=== PATIENT | female | born 1975 | race African-American/Black ===

== ENCOUNTER 2017-06-06 14:13 | Inpatient (IN) | payer MEDICARE ==
[~2017-06-06] VITALS: Ht 162.6 cm; Wt 78.2 kg
[2017-06-06] MEDS ORDERED: VIT B1 PO (14:30)
[2017-06-06] MEDS ORDERED: METO5TAB87 PO (14:30)
[2017-06-06] MEDS ORDERED: BIOT1TAB6 PO (14:30)
[2017-06-06] MEDS ORDERED: PHOSLOC PO (14:30)
[2017-06-06] MEDS ORDERED: NITR1PAT63 TD (14:30)
[2017-06-06] MEDS ORDERED: B12 PO (14:30)
[2017-06-06] MEDS ORDERED: ASPI81TA39 PO (14:30)
[2017-06-06 14:32] LABS: GLUCOSE,POINT OF CARE 193 MG/DL (70-110)
[2017-06-06 15:29] LABS: BASOPHILS % (AUTO) 0.8 % (0.0-2.0); HEMATOCRIT 31.3 % (36-46); HEMOGLOBIN 10.4 g/dL (12.0-16.0); LYMPHOCYTES # (AUTO) 2.7 K/uL (1.0-4.8); LYMPHOCYTES % (AUTO) 33.4 % (22.0-44.0); MEAN CORPUSCULAR HEMOGLOBIN 33.2 pg (26.0-34.0); MEAN CORPUSCULAR HGB CONC 33.3 G/dL (31.0-37.0); MEAN CORPUSCULAR VOLUME 100 fL (80-100); MONOCYTES # (AUTO) 0.5 K/uL (0.1-1.0); MONOCYTES % (AUTO) 5.6 % (2.0-9.0); NEUTROPHILS # (AUTO) 4.7 K/uL (1.8-7.7); NEUTROPHILS % (AUTO) 58.2 % (40.0-70.0); PLATELET COUNT (AUTO) 290 K/uL (150-450); RED BLOOD CELL COUNT(AUTO) 3.15 MIL/uL (4.00-5.20); RED CELL DISTRIBUTION WIDTH 17.2 % (11.5-14.5); WHITE BLOOD COUNT (AUTO) 8.1 K/uL (4.5-11.0)
[2017-06-06 16:06] LABS: CALCIUM, TOTAL 8.4 mg/dL (8.8-10.5); CREATININE 18.68 mg/dL (0.60-1.30); POTASSIUM 3.7 mmol/L (3.5-5.1)
[2017-06-06 16:12] LABS: ALBUMIN 3.7 g/dL (3.4-5.0); BILIRUBIN,TOTAL 0.5 mg/dL (0.1-1.0); TOTAL PROTEIN, SERUM 7.7 g/dL (6.4-8.2)
[2017-06-06] MEDS ORDERED: ONDANSETRON HCL 4 MG TABLET PO ONE (16:30)
[2017-06-06] MEDS ORDERED: 0.9% SODIUM CHLORIDE 10 ML SYRINGE IVP PRN (17:15)
[2017-06-06] MEDS ORDERED: ONDANSETRON HCL 4 MG/2 ML VIAL IVP PRN (17:15)
[2017-06-06] MEDS ORDERED: ACETAMINOPHEN 325 MG TABLET PO PRN ×2 (17:15→22:00)
[2017-06-06] MEDS ORDERED: EPOETIN ALFA 10,000 UNITS/ML 2 ML VIAL SQ ONE (17:30)
[2017-06-06 17:45] LABS: RBC MORPHOLOGY COMMENT ABNORMAL RBC MORPH
[2017-06-06 18:34] VITALS: BP 196/94
[2017-06-06] MEDS: PROMETHAZINE HCL 25 MG TABLET PO PRN (19:32)
[2017-06-06] MEDS ORDERED: SODIUM CHLORIDE 0.9% 2,000 ML IV ONE (19:39)
[2017-06-06 19:41] VITALS: BP 185/87
[2017-06-06] MEDS: CALCIUM ACETATE 667 MG CAPSULE PO SCH (20:00)
[2017-06-06] MEDS ORDERED: INSULIN ASPART 100 UNITS/ML SQ PRN (22:00)
[2017-06-06] MEDS ORDERED: BISACODYL 10 MG RECTAL RECTAL SUPPOSITORY PR PRN (22:00)
[2017-06-06] MEDS ORDERED: DEXTROSE 50%-WATER 25 GM/50 ML SYRINGE IVP PRN (22:00)
[2017-06-07 00:47] VITALS: BP 144/65
[2017-06-07] MEDS: PROMETHAZINE HCL 25 MG TABLET PO PRN (04:04)
[2017-06-07 04:48] VITALS: BP 152/77
[2017-06-07] MEDS ORDERED: PNEUMOCOCCAL VACCINE POLYVALENT 0.5 ML VIAL [PPSV23] IM ONE (05:30)
[2017-06-07 08:09] VITALS: BP 148/69
[2017-06-07] MEDS: CALCIUM ACETATE 667 MG CAPSULE PO SCH (08:57)
[2017-06-07] MEDS ORDERED: ASPIRIN 81 MG CHEWABLE TABLET PO SCH (09:00)
[2017-06-07] MEDS ORDERED: VITAMIN B COMP/VIT C/FOLIC ACID CAPSULE PO SCH (09:00)
[2017-06-07] MEDS ORDERED: DOCUSATE SODIUM 100 MG CAPSULE PO SCH (09:00)
[2017-06-07] MEDS ORDERED: PANTOPRAZOLE SODIUM 40 MG DR TABLET PO SCH (09:00)
[2017-06-07 19:57] LABS: GLUCOSE,POINT OF CARE 85 MG/DL (70-110)
== END 2017-06-07 11:35 | disposition home or self-care (01) | DRG 682 ==
LOC: EMS 14:16 → 6N 17:18
PROVIDERS: ADMIT Internal Medicine; ATTEND Internal Medicine
DX: I12.0 Hypertensive chronic kidney disease with stage 5 chronic kidney disease or end stage renal disease (principal); N18.6 End stage renal disease; E87.2 Acidosis; E11.22 Type 2 diabetes mellitus with diabetic chronic kidney disease; D63.1 Anemia in chronic kidney disease; Z89.411 Acquired absence of right great toe; Z98.84 Bariatric surgery status; Z99.2 Dependence on renal dialysis; Z90.49 Acquired absence of other specified parts of digestive tract; Z88.2 Allergy status to sulfonamides; Z88.8 Allergy status to other drugs, medicaments and biological substances
CPT/HCPCS: 82962; 87081; 87340; 90471; 90935; 93005; 99285; J0885; J7030; Q0162